=== PATIENT | female | born 1945 | race Caucasian/White ===

== ENCOUNTER → 2017-01-16 | Outpatient (CLI) | payer MEDICARE, OTHER ==
[~2017-01-16] MED LIST: ASPIRIN325 M1 PO; IBUPROFEN800 MG PO
== END ==
LOC: SL 19:51
DX: G47.33 Obstructive sleep apnea (adult) (pediatric) (principal)

== ENCOUNTER → 2017-01-28 | Outpatient (CLI) | payer MEDICARE, OTHER ==
[2017-01-28 11:07] LABS: BUN 23 mg/dL (7-18)
[2017-01-28 11:08] LABS: GFR (ESTIMATED) 55 ML/MIN (59-)
== END ==
LOC: LAB 09:36
PROVIDERS: Nurse Practitioner Family
DX: I10 Essential (primary) hypertension (principal); E78.5 Hyperlipidemia, unspecified; M10.9 Gout, unspecified; E55.9 Vitamin D deficiency, unspecified